=== PATIENT | male | born 1955 | race Caucasian/White ===

== ENCOUNTER 2018-08-05 08:53 | Emergency (ER) | payer MEDICARE, OTHER ==
[2018-08-05 08:58] VITALS: BP 192/98
--- NOTE | 2018-08-05 09:16 | EDM.PDOC ---
ED HPI GENERAL MEDICAL PROBLEM - General Chief Complaint: Chest Pain Stated Complaint: CHEST PAIN Time Seen by Provider: 08/05/18 08:56 Source of Information: Reports: Family (), RN History Limitations: Reports: Physical Impairment (Dementia) - History of Present Illness INITIAL COMMENTS - FREE TEXT/NARRATIVE: The patient has dementia, and is unable to contribute much to his history. According to our medical records, the patient was seen in this ED for chest pain on both 07/26/2018 and 07/28/2018. On his 07/26/2018 visit, his ECG, obtained while he was having chest pain, showed no ischemic changes, so the etiology of his chest pain was unclear, however, on his 07/28/2018 visit, he was diagnosed with presumptive GERD, as he had chest pain that resolved following a GI cocktail. He was started on Nexium. A coronary angiogram was subsequently ordered per his PCP, Brittni Castillo. Per report from the nurse, the patient was undergoing a stress test at this facility this morning, when he developed chest pain. He was sent here for evaluation. Here in the ED, the patient does not recall that he was undergoing a stress test, and does not recall having chest pain earlier today, but his short-term memory is extremely limited. At present, he has no complaints whatsoever. He denies having chest pain or dyspnea. Our medical records indicate that the patient has a history of vasospastic angina, although, according to his medication list, he is not on a calcium channel blanca or long-acting nitrate, such as Imdur. His history indicates that he underwent a coronary angiogram, which is likely when the vasospastic angina was diagnosed. The patient's believes that that was in either October 2014 or 2014, likely at [facility]. She recalls that the coronary angiogram found mild coronary artery disease at that time. We will endeavor to locate those records. The patient also has a history of dyslipidemia, however, the patient's states that with the patient's dementia, they simply stopped giving him his dyslipidemic medication. His Investigator Internal Affairs is Dr. Mendez. Chest Pain Score (Numeric/FACES): 10 - Related Data Allergies Allergy/AdvReac Type Severity Reaction Status Date / Time No Known Allergies Allergy Verified 08/05/18 08:58 Home Meds: Home Meds Donepezil HCl [Donepezil HCl Odt] 10 mg PO DAILY 03/12/16 [History] Memantine [Namenda] 10 mg PO BID 03/12/16 [History] Esomeprazole [NexIUM] 40 mg PO DAILY #30 cap 07/28/18 [Rx] Aspirin 1 tab PO DAILY 08/05/18 [History] atorvaSTATin [Lipitor] 1 tab PO BEDTIME #30 tab 08/05/18 [Rx] Past Medical History Cardiovascular History: Reports: High Cholesterol (untreated), Other (See Below ) (Vasospastic angina, previously known as Prinzmetal or variant angina, seen on coronary angiogram 09/30/2015) Neurological History: Reports: Other (See Below) (Dementia) - Past Surgical History Cardiovascular Surgical History: Reports: Other (See Below) (Coronary angiogram 09/30/[address] [facility]) GI Surgical History: Reports: Colonoscopy Social & Family History - Family History Family Medical History: Noncontributory - Tobacco Use Smoking Status *Q: Former Smoker Years of Tobacco use: 32 Packs/Tins Daily: 1 Month/Year Tobacco Last Used: Quit 2005 Second Hand Smoke Exposure: No - Caffeine Use Caffeine Use: Reports: Soda - Alcohol Use Alcohol Use History: Yes Alcohol Use Frequency: Rarely - Recreational Drug Use Recreational Drug Use: No - Living Situation & Occupation Living situation: Reports: , with Spouse Occupation: Retired ED ROS GENERAL - Review of Systems Review Of Systems: ROS reveals no pertinent complaints other than HPI. ED EXAM, GENERAL - Physical Exam Exam: See Below Exam Limited By: No Limitations General Appearance: Alert, WD/WN, No Apparent Distress Eye Exam: Bilateral Eye: EOMI, Normal Inspection Ears: Normal External Exam, Hearing Grossly Normal Nose: Normal Inspection, No Blood Throat/Mouth: Normal Inspection, Normal Lips, Normal Voice, No Airway Compromise Head: Atraumatic, Normocephalic Neck: Normal Inspection, Full Range of Motion Respiratory/Chest: No Respiratory Distress, Lungs Clear, Normal Breath Sounds, No Accessory Muscle Use Cardiovascular: Normal Peripheral Pulses, Regular Rate, Rhythm, No Gallop, No JVD, No Murmur, No Rub Peripheral Pulses: 4+: Radial (L), Radial (R) GI/Abdominal: Normal Bowel Sounds, Soft, Non-Tender, No Organomegaly, No Distention, No Abnormal Bruit, No Mass (Male) Exam: Deferred Rectal (Males) Exam: Deferred Back Exam: Normal Inspection, Full Range of Motion, NT Extremities: Normal Inspection, Normal Range of Motion, No Pedal Edema, Normal Capillary Refill Neurological: Alert, No Motor/Sensory Deficits, Disoriented Psychiatric: Normal Affect Skin Exam: Warm, Dry, Intact, Normal Color, No Rash EKG INTERPRETATION EKG Date: 08/05/18 Time: 08:52 Rhythm: NSR Rate (Beats/Min): 77 [place]: RAD-Right [place] Deviation (likely due to LPFB) P-Wave: Present QRS: Normal ST-T: Normal QT: Prolonged (borderline prolonged at 471 ms) Comparison: No Change (07/28/2018) Course - Vital Signs Last Recorded V/S: Last Vital Signs Temp 36.5 C 08/05/18 08:54 Pulse 72 08/05/18 08:54 Resp 28 H 08/05/18 08:54 BP 192/98 H 08/05/18 08:54 Pulse Ox 100 08/05/18 08:54 - Orders/Labs/Meds Orders: Active Orders 24 hr Category Date Time Status EKG Documentation Completion [RC] STAT Care 08/05/18 09:24 Active - Re-Assessments/Exams Free Text/Narrative Re-Assessment/Exam: 08/05/18 11:24 A copy of the coronary angiogram report from [facility], dated 2014, found nonobstructive disease and coronary spasm. This includes a 40% focal lesion and a 50% focal lesion in the LCx, and a 30% mid vessel lesion and 30-40% distal vessel lesion in the RCA. Nonobstructive RCA spasm was noted. A copy of this report will be attached to the patient's chart. 08/05/18 11:42 The above was discussed with the patient's . It is unclear what the cause of the patient's pain was today - whether GERD or vasospastic angina - but because the patient has a history of vasospastic angina, stress tests are not good options for him, as a positive stress test cannot distinguish between significant coronary artery disease and coronary vasospasm. The patient's does not believe that the patient has ever been on a calcium channel blanca or long-acting nitrate, but she does not know why not. I'm recommending that the patient follow-up with his Investigator Internal Affairs, Dr. Mendez, as soon as possible to discuss that issue. The patient's states that the patient has been off Lipitor for 3 years, she believes. She states that his cholesterol numbers came down, therefore she did not think that he still needed it. I checked with the [facility], and they tell me that the patient's last prescription for Lipitor 40 mg daily was in June 2016. I explained to the patient's the need for the patient be on Lipitor, because without it, we would expect progression of his coronary artery disease. I will send a prescription for Lipitor 40 mg daily to the [facility]. The patient's also states that the patient is currently scheduled for an echocardiogram, also ordered by his PCP, Brittni Castillo. The patient's does not know why the echocardiogram was ordered, and I do not see an indication for it at this time, although Ms. Castillo may have some history that I do not have. Again, because I'm recommending that the patient follow-up with his Investigator Internal Affairs, that they discuss whether or not the patient would benefit from an echocardiogram. Departure - Departure Time of Disposition: 11:48 Disposition: Home, Self-Care 01 Condition: Good Clinical Impression: Exertional chest pain Referrals: Brittni Castillo PA-C [Physician Newspaper Columnist] - Chanel Mendez MD [Physician] - Forms: ED Department Discharge Additional Instructions: Mika was seen in the emergency room after developing chest pain during a stress test this morning. By the time that he was seen in the ER, he no longer had any chest pain, and an ECG was normal. A copy of the coronary angiogram report from [facility], dated 2014 was acquired, confirming that your has a history of vasospastic angina. It is unclear whether his chest pain was due to vasospastic angina or some other cause, such as acid reflux, however, because he has a history of vasospastic angina, stress tests are not of much use, because they cannot distinguish between significant coronary artery disease and coronary artery vasospastic. The coronary angiogram did find some coronary disease. Because of that, your should be on a cholesterol-lowering medicine, such as Lipitor ( atorvastatin). A prescription for atorvastatin has been sent to the [facility], located in the [employer] [facility]. He should take one tablet at bedtime, starting tonight, as prescribed. Most patients with vasospastic angina or treated with a calcium channel blanca or long-acting nitrate. We recommend that you follow-up with your Investigator Internal Affairs, Dr. Mendez, to discuss if your would benefit from such a medicine. Your is currently scheduled for an outpatient echocardiogram, ordered by your PCP, Brittni Castillo. The reason for this is unclear. We recommend that you discuss with Dr. Mendez whether or not your would benefit from such a test. If any other problems, please do not hesitate to return Mika to the ER. - My Orders Last 24 Hours: My Active Orders 08/05/18 09:24 EKG Documentation Completion [RC] STAT - Assessment/Plan Last 24 Hours: My Active Orders 08/05/18 09:24 EKG Documentation Completion [RC] STAT
== END 2018-08-05 12:20 | disposition home or self-care (01) ==
LOC: JD.ED 08:53
DX: R07.9 Chest pain, unspecified (principal); F03.90 Unspecified dementia, unspecified severity, without behavioral disturbance, psychotic disturbance, mood disturbance, and anxiety; Z79.82 Long term (current) use of aspirin; Z79.899 Other long term (current) drug therapy; Z87.891 Personal history of nicotine dependence
CPT/HCPCS: 93005; 93010; 99284-25; 99285-25

== ENCOUNTER 2019-07-27 14:40 | Emergency (ER) | payer MEDICARE, OTHER ==
[2019-07-27 14:49] VITALS: BP 146/93; PULSE 58
--- NOTE | 2019-07-27 14:56 | EDM.PDOC ---
ED HPI GENERAL MEDICAL PROBLEM - General Chief Complaint: Chest Pain Stated Complaint: [facility] Time Seen by Provider: 07/27/19 14:51 Source of Information: Reports: Patient History Limitations: Reports: No Limitations - History of Present Illness INITIAL COMMENTS - FREE TEXT/NARRATIVE: 63-year-old male presents to the ED with initial complaint of severe lower back pain. Patient's decided that he was having such significant discomfort that they would bring him to [place] for care. En route to [place] he started to experience heavy central chest pressure discomfort which rate up into the of his neck and down his left arm. He's had a previous microinfarction requiring one stent a year ago and remains on Plavix daily. 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 He is apparently on isosorbide mononitrate 30mg od in am for this. Dosages been the same for the last year. At the time he arrives in the ED his chest pressure discomfort is rated as a 2 out of 10. His back pain is gone. His symptoms are worrisome therefore possible aortic dissection although would be unusual for the pain to gotten markedly improved on its own volition as it should've gotten much worse on Plavix. I'm going to see what his chest x-ray looks like and make a decision about need for aortogram. Patient's did give him 2 Aleve tablets at about noon hour today. He currently has no back pain. The history is comp located as the patient has early Alzheimer's disease and looks to his to answer most of his questions. He did sleep in a normal bed last night not in an awkward position is the easy chair or sofa. Onset: Unknown/Unsure Onset Date: 07/27/19 Onset Time: 12:00 (Development of back pain. The development of the central chest pain was more like 1330 hrs.) Duration: Hour(s): Location: Reports: Chest (Diffuse central chest pain rating up into his neck and left arm.), Back (Complaining of diffuse low back pain initially at about noon today.) Quality: Reports: Ache, Pressure (Still has a central pressure in his chest) Severity: Mild (which he claims is 2 out of 10.) Improves with: Reports: None Worsens with: Reports: None Context: Denies: Activity, Exercise, Lifting, Sick Contact, Trauma, Other Associated Symptoms: Reports: Confusion, Chest Pain (Patient has some early Alzheimer's disease looks to his to answer a lot of his questions. Describes central chest pressure discomfort as a heaviness and pressure not sharp and stabbing" currently rates it is 2 out of 10. Fairly one was severe was 9 out of 10.), Malaise. Denies: cough w sputum, Diaphoresis, Fever/Chills, Headaches, Loss of Appetite, Nausea/Vomiting, Rash, Seizure, Shortness of Breath , Syncope, Weakness Treatments BARBER STYLIST: Reports: Other (see below) (Had 2 Aleve tablets about noon today.) - Related Data Allergies Allergy/AdvReac Type Severity Reaction Status Date / Time No Known Allergies Allergy Verified 08/05/18 08:58 Home Meds: Home Meds Donepezil HCl [Donepezil HCl Odt] 10 mg PO DAILY 03/12/16 [History] Memantine [Namenda] 10 mg PO BID 03/12/16 [History] Aspirin 1 tab PO DAILY 08/05/18 [History] atorvaSTATin [Lipitor] 1 tab PO BEDTIME #30 tab 08/05/18 [Rx] Clopidogrel [Plavix] 75 mg PO DAILY 07/27/19 [History] Isosorbide Mononitrate [Isosorbide Mononitrate ER] 30 mg PO QAM 07/27/19 [ History] amLODIPine [Norvasc] 2.5 mg PO QAM 07/27/19 [History] Past Medical History Cardiovascular History: Reports: High Cholesterol (untreated), Other (See Below ) (Vasospastic angina, 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 The patient's states his pain usually lasts for 5 minutes when he gets angina variant but today did not go away.) Other Cardiovascular History: heart muscle spasm Gastrointestinal History: Reports: None Neurological History: Reports: Other (See Below) (Dementia) Other Neuro History: Dementia Psychiatric History: Reports: Dementia - Past Surgical History Cardiovascular Surgical History: Reports: Other (See Below) (Coronary angiogram 09/30/[address] [facility]) GI Surgical History: Reports: Colonoscopy Social & Family History - Family History Family Medical History: Noncontributory - Caffeine Use Caffeine Use: Reports: Soda - Living Situation & Occupation Living situation: Reports: , with Spouse Occupation: Retired ED ROS GENERAL - Review of Systems Review Of Systems: See Below Constitutional: Denies: Fever, Chills, Malaise, Weakness, Fatigue, Decreased Appetite (8. Dinner.), Weight Loss HEENT: Reports: No Symptoms Respiratory: Denies: Shortness of Breath, Pleuritic Chest Pain, Cough, Sputum, Hemoptysis Cardiovascular: Reports: Chest Pain (Central chest heaviness), Blood Pressure Problem, Dyspnea on Exertion (Sometimes). Denies: Claudication (Mild hypertension), Lightheadedness, Orthopnea Endocrine: Reports: Fatigue GI/Abdominal: Denies: Abdominal Pain, Anorexia, Black Stool, Constipation, Diarrhea, Decreased Appetite, Difficulty Swallowing, Distension, Flatus, Hematochezia : Reports: Frequency, Other (Nocturia usually 2 or 3 times.) Musculoskeletal: Reports: Neck Pain (Left arm pain associated with central chest pain), Arm Pain, Back Pain (Low back pain which is been problematic off and on in the past.) Skin: Reports: No Symptoms ( referred up into his neck from his central chest according to the patient.) Neurological: Reports: Confusion (Patient has early Alzheimer's disease and has an impaired short-term memory.) Psychiatric: Reports: No Symptoms Hematologic/Lymphatic: Reports: No Symptoms Immunologic: Reports: No Symptoms ED EXAM, GENERAL - Physical Exam Exam: See Below Exam Limited By: Other (Ration and has early Alzheimer's disease.) General Appearance: Alert ( Some impaired short-term memory and looks to his to answer a lot of his questions.), WD/WN, No Apparent Distress, Other ( Vital signs are stable other than blood pressure being mildly elevated 146/93. O2 sats are 97% on room air his heart rate is 58 in sinus. Afebrile.) Eye Exam: Bilateral Eye: Normal Inspection Throat/Mouth: Normal Inspection, Normal Lips, Normal Teeth, Normal Oropharynx, Other (Tongue is slightly dry and coated) Head: Atraumatic, Normocephalic, Sinus Tenderness Neck: Normal Inspection, Supple, Non-Tender, Full Range of Motion. No: Carotid Bruit, Lymphadenopathy (L), Lymphadenopathy (R) Respiratory/Chest: No Respiratory Distress, Lungs Clear, Normal Breath Sounds, No Accessory Muscle Use, Chest Non-Tender Cardiovascular: Normal Peripheral Pulses, Regular Rate, Rhythm, No Edema, No Gallop, No Murmur, No Rub Peripheral Pulses: 2+: Carotid (L), Carotid (R), Femoral (L), Femoral (R), Posterior Tibial (L), Posterior Tibial (R), Dorsalis Pedis (L), Dorsalis Pedis ( R) GI/Abdominal: Normal Bowel Sounds, Soft, Non-Tender, No Organomegaly, No Distention, No Abnormal Bruit, No Mass, Pelvis Stable, Other. No: Guarding, Rigid, Rebound (No surgical scars), Tender Back Exam: Normal Inspection, Full Range of Motion, Other (He sits up easily on the gurney and from compression throughout his lumbar spine gave him no pain.) Extremities: Normal Inspection, Normal Range of Motion, Non-Tender, No Pedal Edema Neurological: Alert, CN II-XII Intact, Normal Cognition, Normal Gait, No Motor/ Sensory Deficits. No: Oriented (Oriented to time) Psychiatric: Flat Affect (Fairly flat affect.) Skin Exam: Warm, Dry, Intact, Normal Color, No Rash EKG INTERPRETATION EKG Date: 07/27/19 Time: 14:47 Rhythm: Other (Sinus bradycardia) Rate (Beats/Min): 59 [place]: RAD-Right [place] Deviation (108) P-Wave: Present QRS: Other (Left posterior fascicular block pattern decreased voltage precordial leads.) QT: Normal EKG Interpretation Comments: Abnormal ECG. No signs of ischemia Course - Vital Signs Last Recorded V/S: Last Vital Signs Temp 36.6 C 07/27/19 14:44 Pulse 58 L 07/27/19 14:44 Resp 18 07/27/19 14:44 BP 146/93 H 07/27/19 14:44 Pulse Ox 97 07/27/19 14:44 - Orders/Labs/Meds Orders: Active Orders 24 hr Category Date Time Status EKG Documentation Completion [RC] STAT Care 07/27/19 14:55 Active Chest 1V Frontal [CR] Stat Exams 07/27/19 14:55 Taken Lumbar Spine 2 or 3V [CR] Stat Exams 07/27/19 15:54 Taken Labs: Laboratory Tests 07/27/19 07/27/19 07/27/19 Range/Units 14:50 14:50 14:50 WBC 7.82 (4.23-9.07) K/mm3 RBC 4.95 (4.63-6.08) M/mm3 Hgb 15.7 (13.7-17.5) gm/L Hct 44.4 (40.1-51.0) % MCV 89.7 (79.0-92.2) fl MCH 31.7 (25.7-32.2) pg MCHC 35.4 (32.2-35.5) g/dl RDW Std Deviation 43.0 (35.1-43.9) fL Plt Count 228 (163-337) K/mm3 MPV 11.0 (9.4-12.3) fl Neut % (Auto) 65.5 (34.0-67.9) % Lymph % (Auto) 22.1 (21.8-53.1) % [place] % (Auto) 10.1 (5.3-12.2) % Eos % (Auto) 1.7 (0.8-7.0) Baso % (Auto) 0.3 (0.1-1.2) % Neut # (Auto) 5.13 (1.78-5.38) K/mm3 Lymph # (Auto) 1.73 (1.32-3.57) K/mm3 [place] # (Auto) 0.79 (0.30-0.82) K/mm3 Eos # (Auto) 0.13 (0.04-0.54) K/mm3 Baso # (Auto) 0.02 (0.01-0.08) K/mm3 PT 10.2 (9.7-12.0) SECONDS INR 0.93 D-Dimer, Quantitative 0.29 (0.19-0.50) mg/L Sodium 141 (136-145) mEq/L Potassium 3.4 L (3.5-5.1) mEq/L Chloride 108 H (98-107) mEq/L Carbon Dioxide 24 (21-32) mEq/L Anion Gap 12.4 (5-15) BUN 14 (7-18) mg/dL Creatinine 1.4 H (0.7-1.3) mg/dL Est Cr Clr Drug Dosing 57.74 mL/min Estimated GFR (MDRD) 51 (>60) mL/min BUN/Creatinine Ratio 10.0 L (14-18) Glucose 104 (80-115) mg/dL Calcium 9.0 (8.5-10.1) mg/dL Magnesium 2.3 (1.8-2.4) mg/dl Total Bilirubin 0.5 (0.2-1.0) mg/dL AST 15 (15-37) U/L ALT 35 (16-63) U/L Alkaline Phosphatase 125 H (46-116) U/L CK-MB (CK-2) 0.9 (0-3.6) ng/ml Troponin I < 0.017 (0.00-0.056) ng/mL C-Reactive Protein < 0.2 (<1.0) mg/dL NT-Pro-B Natriuret Pep (0-125) pg/mL Total Protein 6.9 (6.4-8.2) g/dl Albumin 3.9 (3.4-5.0) g/dl Globulin 3.0 gm/dL Albumin/Globulin Ratio 1.3 (1-2) 07/27/19 07/27/19 Range/Units 14:50 17:25 WBC (4.23-9.07) K/mm3 RBC (4.63-6.08) M/mm3 Hgb (13.7-17.5) gm/L Hct (40.1-51.0) % MCV (79.0-92.2) fl MCH (25.7-32.2) pg MCHC (32.2-35.5) g/dl RDW Std Deviation (35.1-43.9) fL Plt Count (163-337) K/mm3 MPV (9.4-12.3) fl Neut % (Auto) (34.0-67.9) % Lymph % (Auto) (21.8-53.1) % [place] % (Auto) (5.3-12.2) % Eos % (Auto) (0.8-7.0) Baso % (Auto) (0.1-1.2) % Neut # (Auto) (1.78-5.38) K/mm3 Lymph # (Auto) (1.32-3.57) K/mm3 [place] # (Auto) (0.30-0.82) K/mm3 Eos # (Auto) (0.04-0.54) K/mm3 Baso # (Auto) (0.01-0.08) K/mm3 PT (9.7-12.0) SECONDS INR D-Dimer, Quantitative (0.19-0.50) mg/L Sodium (136-145) mEq/L Potassium (3.5-5.1) mEq/L Chloride (98-107) mEq/L Carbon Dioxide (21-32) mEq/L Anion Gap (5-15) BUN (7-18) mg/dL Creatinine (0.7-1.3) mg/dL Est Cr Clr Drug Dosing mL/min Estimated GFR (MDRD) (>60) mL/min BUN/Creatinine Ratio (14-18) Glucose (80-115) mg/dL Calcium (8.5-10.1) mg/dL Magnesium (1.8-2.4) mg/dl Total Bilirubin (0.2-1.0) mg/dL AST (15-37) U/L ALT (16-63) U/L Alkaline Phosphatase (46-116) U/L CK-MB (CK-2) 1.0 (0-3.6) ng/ml Troponin I < 0.017 (0.00-0.056) ng/mL C-Reactive Protein (<1.0) mg/dL NT-Pro-B Natriuret Pep 141 H (0-125) pg/mL Total Protein (6.4-8.2) g/dl Albumin (3.4-5.0) g/dl Globulin gm/dL Albumin/Globulin Ratio (1-2) Meds: Medications Discontinued Medications Generic Name Dose Route Start Last Admin Trade Name Parthq PRN Reason Stop Dose Admin Hydromorphone HCl 0.5 mg 07/27/19 15:19 07/27/19 15:29 Dilaudid IVPUSH 07/27/19 15:20 Not Given ONETIME ONE Sodium Chloride 1,000 mls @ 125 mls/hr 07/27/19 15:00 07/27/19 15:00 Normal Saline IV 125 mls/hr ASDIRECTED THA Administration Ondansetron HCl 4 mg 07/27/19 15:20 07/27/19 15:29 Zofran IVPUSH 07/27/19 15:21 4 mg ONETIME ONE Administration - Radiology Interpretation Free Text/Narrative:: 63-year-old male with known coronary disease having had a OH year ago requiring one stent placement and is on Plavix presents to the ED with central chest pain rating up into his neck and down into his left arm. They left home and [place] about 12:30 today because of his complaints of severe low back pain. He had no known injuries and he slept in his own bed last night. Upon arrival in the ED has no further back pain. His gave him 2 L at home earlier about noon today. En route to [place] by private vehicle by [employer] he started to complain of severe retrosternal chest pressure discomfort and reports he looked rubi in color. She therefore summoned the [facility] or [facility] and was to bring him to the hospital. He had taken his baby aspirin this morning and they had given him 3 more aspirins en route to the hospital. Here he complains of pain in his central chest at 2 out of 10. Tach pain is completely gone. The history suggests she has Prinzmetal's angina or spastic angina for which she does take isosorbide mononitrate 30 mils grams once daily every morning. Been on this for the last year. Plan ECG does not show any ischemia at this time. One view chest x-ray routine labs to include cardiac markers. I will look at his chest x-ray and if that suggests any signs of aortic dilatation I will have CT of his aorta performed. The history is seems to be somewhat confounded by the patient's short-term memory impairment and perhaps cognitive dysfunction from our early Alzheimer's disease. - Re-Assessments/Exams Free Text/Narrative Re-Assessment/Exam: 07/27/19 15:55 chest x-ray done portably shows normal cardiac silhouette. Perhaps very minimal vascular congestion pattern possibly exacerbated by portable technique. Visualized lungs are clear. It doesn't look like there is any signs of aortic problems. I will have x-rays of his lumbar spine performed i.e. AP and lateral views. 07/27/19 16:44 Labs are back. White count is 7.82 with 65% neutrophils on the auto differential. Hemoglobin is 15.7 with hematocrit of 44.4. Platelet count 220,000. PT is 10.2 with an INR of 0.93. D-dimer is 0.29 normal. Sodium 141 with potassium slightly low at 3.4. Chloride 108 with a bicarbonate 24. Anion gap is 12.4 BUN is 14 with a creatinine of 1.4. EGFR is 51. Glucose is 104 the calcium of 9.0. Magnesium is 2.3. Bilirubin is 0.5 liver function is otherwise normal. CK-MB fraction is 0.9 with troponin I of less than 0.017. C-reactive protein is less than 0.2. BNP is 141 minimally elevated. Total protein is 6.9 with albumin fraction of 3.9. 07/27/19 16:46 x-rays of the lumbar spine reveals a mild compression fracture of the anterior superior surface of T12 vertebra which is old. There is some narrowing of the disc space at L5-S1 with some nerve root entrapment of the L5 nerve root. He is up walking however without any pain in his back at this time. She'll cardiac markers are normal I will have the repeated a quarter after 5 to ensure that we did not miss anything. He doesn't seem to be in any distress and has no chest pressure discomfort at this time. Free Text/Narrative Re-Assessment/Exam: 07/27/19 18:17 Repeat cardiac markers reveal a CK-MB fraction of 1.0 and a troponin I of less than 0.017. Unchanged from the initial values. Departure - Departure Time of Disposition: 18:17 Disposition: Home, Self-Care 01 Condition: Fair Clinical Impression: Prinzmetal variant angina Lumbago without sciatica Qualifiers: Chronicity: acute Back pain laterality: unspecified Qualified Code(s): M54.5 - Low back pain Instructions: Acute Back Pain, Adult, Angina Pectoris, [id number] Referrals: Davis Kowalski MD [Primary Care Provider] - Forms: ED Department Discharge Additional Instructions: Evaluation the emergent today in regards to 2 problems. Initially started having diffuse low back pain with no radiation down the extremity. Appears due to be due to degenerative arthritis at the L5-S1 facet on x-ray. Narrowing of the disc space at this level and I suspect the fifth nerve gets pinched intermittently Aleve 2 tablets every 8 hours as needed for pain relief. On the way to [place] you develop significant retrosternal chest pain. Possibly aggravated by anxiety disorder. History of Prinzmetal's angina. ECG did not show any signs of heart ischemia. Chest x-ray was within normal limits. There is no sign of heart failure no sign of blood clot in the lung. Repeat cardiac markers 3 hours later reveal them to be unchanged and normal. Therefore no heart attack has occurred. It is my suggestion that if this type of pain comes on again then you are to take an extra dose of your isosorbide mononitrate tablet softened will work within 5-10 minutes to take away spastic type pain of the coronary arteries. - My Orders Last 24 Hours: My Active Orders 07/27/19 14:55 EKG Documentation Completion [RC] STAT Chest 1V Frontal [CR] Stat 07/27/19 15:54 Lumbar Spine 2 or 3V [CR] Stat - Assessment/Plan Last 24 Hours: My Active Orders 07/27/19 14:55 EKG Documentation Completion [RC] STAT Chest 1V Frontal [CR] Stat 07/27/19 15:54 Lumbar Spine 2 or 3V [CR] Stat
[2019-07-27] MEDS ORDERED: Sodium Chloride 0.9% 1,000 ML IV SCH (15:00)
[2019-07-27] MEDS ORDERED: HYDROmorphone 0.5 MG/0.5 ML Syringe IVPUSH ONE (15:19)
[2019-07-27] MEDS ORDERED: Ondansetron 4 MG/2 ML SDV IVPUSH ONE (15:20)
--- NOTE | 2019-07-28 09:22 | CR ---
Lumbar spine: AP, lateral and cone-down lateral views centered to the lumbosacral junction were obtained. Comparison: No previous study. Severe joint space narrowing is noted at L5-S1. Mild posterior disc space narrowing is noted at L1-L2, L2-L3 and L4-L5. Mild diffuse disc space narrowing is seen at T10-T11 and T11-T12. Scattered anterior endplate osteophytes are seen. Slight posterior osteophytes are noted at L5-S1. Sacroiliac joints are normal. Slight compression deformity is seen of T12 which is felt to be old. Pedicles as well as transverse and spinous processes are intact. Vascular calcification is noted within the abdominal aorta. Pressure: 1. Degenerative change as noted above. 2. Slight compression deformity of T12 which is felt to be old. 3. Nothing acute is seen. Diagnostic code #2
--- NOTE | 2019-07-28 09:22 | CR ---
Chest: Portable view of the chest was obtained. Comparison: Prior chest x-ray of 07/28/18. Heart size and mediastinum are within normal limits for portable technique. Lungs are clear with no acute parenchymal change. Bony structures are grossly intact. Impression: 1. Nothing acute is appreciated on portable chest x-ray. Diagnostic code #1
== END 2019-07-27 18:26 | disposition home or self-care (01) ==
LOC: JD.ED 14:40
DX: M54.5 Low back pain (principal); I20.1 Angina pectoris with documented spasm; E78.00 Pure hypercholesterolemia, unspecified; F03.90 Unspecified dementia, unspecified severity, without behavioral disturbance, psychotic disturbance, mood disturbance, and anxiety; Z79.82 Long term (current) use of aspirin; Z79.899 Other long term (current) drug therapy
CPT/HCPCS: 36415; 71045; 72100; 80053; 82553; 83735; 83880; 84484; 85025; 85379; 85610; 86140; 93005; 96361; 96374; 99285; J2405; J7040; 93010

== ENCOUNTER 2019-10-12 21:44 | Emergency (ER) | payer MEDICARE, OTHER ==
[2019-10-12 21:50] VITALS: BP 148/80; PULSE 82
--- NOTE | 2019-10-12 22:25 | EDM.PDOC ---
ED HPI GENERAL MEDICAL PROBLEM - General Chief Complaint: Cardiovascular Problem Stated Complaint: [facility] Time Seen by Provider: 10/12/19 21:54 Source of Information: Reports: Patient, Family (, 2 adult kids) History Limitations: Reports: Altered Mental Status (Dementia) - History of Present Illness INITIAL COMMENTS - FREE TEXT/NARRATIVE: Mr. Gibson is a pleasant 64-year-old man with a past medical history significant for dementia, wherefore he is unable to contribute to his history. His and 2 kids provided his entire history, along with a report from EMS. The patient also has a history of vasospastic angina and coronary artery disease , status post a single coronary stent on 10/02/2018. [place] to the patient's , the patient often feels cold, and is shaking his fist yesterday morning. Today, the patient was more sleepy than usual, and he swore today, which is new for him. His called EMS after he told her that he felt like he was having a heart attack, around 19:50. No recent fever, cough , complaint of dyspnea, nausea, vomiting, constipation, diarrhea, or complaint of urinary symptoms. EMS reported that they found the patient to be in atrial fibrillation, but that he converted to a normal sinus rhythm by the time they got him into the ambulance. A rhythm strip appears to indicate sinus bradycardia. Here in the ED, the patient is found to be afebrile, saturating 94% on room air. He is alert and appears to be comfortable. He denies having any pain, anywhere. The patient's PCP is SYLWIA Mccann, although he has also seen Dr. Davis Kowalski. His Wine Pasteurizer is Dr. Santino Lozano. His Neurologist is Dr. Adan Avila. The patient has not received an influenza vaccine this season, but the patient' s agreed for him to receive one here. - Related Data Allergies Allergy/AdvReac Type Severity Reaction Status Date / Time No Known Allergies Allergy Verified 10/12/19 21:57 Home Meds: Home Meds Donepezil HCl [Donepezil HCl Odt] 10 mg PO DAILY 03/12/16 [History] Memantine [Namenda] 10 mg PO BID 03/12/16 [History] Aspirin 1 tab PO DAILY 08/05/18 [History] atorvaSTATin [Lipitor] 1 tab PO BEDTIME #30 tab 08/05/18 [Rx] Isosorbide Mononitrate [Isosorbide Mononitrate ER] 30 mg PO QAM 07/27/19 [ History] LORazepam [Ativan] 0.5 mg PO TID PRN 10/12/19 [History] Past Medical History Cardiovascular History: Reports: CAD, High Cholesterol, Other (See Below) ( Vasospastic angina, 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, seen on coronary angiogram 09/30/2015) Musculoskeletal History: Reports: Fracture (t12 compression) Neurological History: Reports: Other (See Below) (Dementia) - Past Surgical History Cardiovascular Surgical History: Reports: Coronary Artery Stent (x 1, 2017 @ [facility]), Other (See Below) (Coronary angiogram x 2 @ [facility]) GI Surgical History: Reports: Colonoscopy Social & Family History - Family History Family Medical History: Noncontributory - Tobacco Use Smoking Status *Q: Former Smoker Years of Tobacco use: 32 Packs/Tins Daily: 1 Month/Year Tobacco Last Used: Quit 2005 Tobacco Use Comment: Pt unable to provide answer for RN due to demetia. - Caffeine Use Caffeine Use: Reports: Soda Caffeine Use Comment: Pt unable to provide answer for RN due to demetia. - Alcohol Use Alcohol Use History: Yes Alcohol Use Frequency: Rarely - Recreational Drug Use Recreational Drug Use: No - Living Situation & Occupation Living situation: Reports: , with Spouse Occupation: Retired ED ROS GENERAL - Review of Systems Review Of Systems: Comprehensive ROS is negative, except as noted in HPI. ED EXAM, GENERAL - Physical Exam Exam: See Below Exam Limited By: No Limitations General Appearance: Alert, WD/WN, No Apparent Distress Eye Exam: Bilateral Eye: EOMI, Normal Inspection Ears: Normal External Exam, Hearing Grossly Normal Nose: Normal Inspection Throat/Mouth: Normal Inspection, Normal Lips, Normal Voice, No Airway Compromise Head: Atraumatic, Normocephalic Neck: Normal Inspection, Full Range of Motion Respiratory/Chest: No Respiratory Distress, Lungs Clear, Normal Breath Sounds, No Accessory Muscle Use Cardiovascular: Normal Peripheral Pulses, Regular Rate, Rhythm, No Gallop, No JVD, No Murmur, No Rub Peripheral Pulses: 4+: Radial (L), Radial (R) GI/Abdominal: Normal Bowel Sounds, Soft, Non-Tender, No Organomegaly, No Distention, No Abnormal Bruit, No Mass (Male) Exam: Deferred Rectal (Males) Exam: Deferred Back Exam: Normal Inspection, Full Range of Motion, NT Extremities: Normal Inspection, Normal Range of Motion, No Pedal Edema, Normal Capillary Refill Neurological: Alert, No Motor/Sensory Deficits Psychiatric: Normal Affect Skin Exam: Warm, Dry, Intact, Normal Color, No Rash EKG INTERPRETATION EKG Date: 10/12/19 Time: 21:46 Rhythm: NSR Rate (Beats/Min): 63 [place]: RAD-Right Eng[place]hard Deviation (2 LPFB) P-Wave: Present (1 AVB) QRS: Normal (Late transition) ST-T: Normal QT: Normal Comparison: No Change (07/27/2019) Course - Vital Signs Last Recorded V/S: Last Vital Signs Temp 36.9 C 10/12/19 21:46 Pulse 82 10/12/19 21:46 Resp 14 10/12/19 21:46 BP 148/80 H 10/12/19 21:46 Pulse Ox 94 L 10/12/19 21:46 - Orders/Labs/Meds Orders: Active Orders 24 hr Category Date Time Status EKG Documentation Completion [RC] STAT Care 10/12/19 22:17 Active Chest 2V [CR] Stat Exams 10/12/19 22:25 Taken CULTURE BLOOD [BC] Stat Lab 10/12/19 22:33 Received CULTURE BLOOD [BC] Stat Lab 10/12/19 22:43 Received Blood Culture x2 Reflex Set [OM.PC] Stat Oth 10/12/19 22:17 Ordered Labs: Laboratory Tests 10/12/19 10/12/19 10/12/19 Range/Units 22:43 22:43 22:43 WBC 8.05 (4.23-9.07) K/mm3 RBC 4.59 L (4.63-6.08) M/mm3 Hgb 14.6 (13.7-17.5) gm/dl Hct 41.7 (40.1-51.0) % MCV 90.8 (79.0-92.2) fl MCH 31.8 (25.7-32.2) pg MCHC 35.0 (32.2-35.5) g/dl RDW Std Deviation 44.1 H (35.1-43.9) fL Plt Count 203 (163-337) K/mm3 MPV 11.0 (9.4-12.3) fl Neutrophils % (Manual) 60 (40-60) % Band Neutrophils % 1 (0-10) % Lymphocytes % (Manual) 29 (20-40) % Atypical Lymphs % 0 % Monocytes % (Manual) 8 (2-10) % Eosinophils % (Manual) 2 (0.8-7.0) % Basophils % (Manual) 0 L (0.2-1.2) Platelet Estimate Adequate Plt Morphology Comment See note RBC Morph Comment Normal Sodium 143 (136-145) mEq/L Potassium 3.5 (3.5-5.1) mEq/L Chloride 109 H (98-107) mEq/L Carbon Dioxide 24 (21-32) mEq/L Anion Gap 13.5 (5-15) BUN 10 (7-18) mg/dL Creatinine 1.2 (0.7-1.3) mg/dL Est Cr Clr Drug Dosing 60.55 mL/min Estimated GFR (MDRD) > 60 (>60) mL/min BUN/Creatinine Ratio 8.3 L (14-18) Glucose 107 (80-115) mg/dL Lactic Acid 0.7 (0.4-2.0) mmol/L Calcium 8.5 (8.5-10.1) mg/dL Magnesium 2.2 (1.8-2.4) mg/dl Total Bilirubin 0.6 (0.2-1.0) mg/dL AST 19 (15-37) U/L ALT 38 (16-63) U/L Alkaline Phosphatase 108 (46-116) U/L Troponin I < 0.017 (0.00-0.056) ng/mL Total Protein 6.6 (6.4-8.2) g/dl Albumin 3.7 (3.4-5.0) g/dl Globulin 2.9 gm/dL Albumin/Globulin Ratio 1.3 (1-2) Urine Color (Yellow) Urine Appearance (Clear) Urine pH (5.0-8.0) Ur Specific [place] (1.005-1.030) Urine Protein (Negative) Urine Glucose (UA) (Negative) Urine Ketones (Negative) Urine Occult Blood (Negative) Urine Nitrite (Negative) Urine Bilirubin (Negative) Urine Urobilinogen (0.2-1.0) Ur Leukocyte Esterase (Negative) Urine RBC (0-5) /hpf Urine WBC (0-5) /hpf Ur Epithelial Cells (0-5) /hpf Amorphous Sediment (NOT SEEN) /hpf Urine Bacteria (FEW) /hpf Urine Mucus (FEW) /hpf 10/12/19 Range/Units 23:00 WBC (4.23-9.07) K/mm3 RBC (4.63-6.08) M/mm3 Hgb (13.7-17.5) gm/dl Hct (40.1-51.0) % MCV (79.0-92.2) fl MCH (25.7-32.2) pg MCHC (32.2-35.5) g/dl RDW Std Deviation (35.1-43.9) fL Plt Count (163-337) K/mm3 MPV (9.4-12.3) fl Neutrophils % (Manual) (40-60) % Band Neutrophils % (0-10) % Lymphocytes % (Manual) (20-40) % Atypical Lymphs % % Monocytes % (Manual) (2-10) % Eosinophils % (Manual) (0.8-7.0) % Basophils % (Manual) (0.2-1.2) Platelet Estimate Plt Morphology Comment RBC Morph Comment Sodium (136-145) mEq/L Potassium (3.5-5.1) mEq/L Chloride (98-107) mEq/L Carbon Dioxide (21-32) mEq/L Anion Gap (5-15) BUN (7-18) mg/dL Creatinine (0.7-1.3) mg/dL Est Cr Clr Drug Dosing mL/min Estimated GFR (MDRD) (>60) mL/min BUN/Creatinine Ratio (14-18) Glucose (80-115) mg/dL Lactic Acid (0.4-2.0) mmol/L Calcium (8.5-10.1) mg/dL Magnesium (1.8-2.4) mg/dl Total Bilirubin (0.2-1.0) mg/dL AST (15-37) U/L ALT (16-63) U/L Alkaline Phosphatase (46-116) U/L Troponin I (0.00-0.056) ng/mL Total Protein (6.4-8.2) g/dl Albumin (3.4-5.0) g/dl Globulin gm/dL Albumin/Globulin Ratio (1-2) Urine Color Yellow (Yellow) Urine Appearance Clear (Clear) Urine pH 6.0 (5.0-8.0) Ur Specific [place] 1.010 (1.005-1.030) Urine Protein Negative (Negative) Urine Glucose (UA) Negative (Negative) Urine Ketones Negative (Negative) Urine Occult Blood Negative (Negative) Urine Nitrite Negative (Negative) Urine Bilirubin Negative (Negative) Urine Urobilinogen 1.0 (0.2-1.0) Ur Leukocyte Esterase Negative (Negative) Urine RBC 0-5 (0-5) /hpf Urine WBC Not seen (0-5) /hpf Ur Epithelial Cells Not seen (0-5) /hpf Amorphous Sediment Few H (NOT SEEN) /hpf Urine Bacteria Few (FEW) /hpf Urine Mucus Rare (FEW) /hpf - Re-Assessments/Exams Free Text/Narrative Re-Assessment/Exam: 10/12/19 22:19 As per the HPI, the patient's states that the patient often feels cold, and may have had some shivers yesterday morning. He had increased sleepiness today, and swore, which is new, otherwise, there were no significant symptoms. According to the triage note, EMS found the patient to be in atrial fibrillation , however, by the time they got him in the ambulance, he was in a normal sinus rhythm. The rhythm strip collected by EMS appears to demonstrate a sinus bradycardia. Here in the ED, the patient is in a normal sinus rhythm. There are no ischemic changes on his ECG, and he ate that he has no pain, whatsoever, anywhere. I have ordered a workup that includes blood work, a chest x-ray, a urinalysis, and an influenza swab. 10/13/19 00:19 2-view chest radiograph appears to be grossly normal. The cardiac silhouette is within normal limits. No pulmonary vascular congestion. No pleural effusions. No focal infiltrate. No pneumothorax. Formal read per the Radiologist pending. The patient's CBC is unremarkable. His CMP is remarkable only for a chloride slightly elevated at 109, and is otherwise unremarkable. His magnesium is within normal limits at 2.2. His troponin is undetectably low. His lactic acid level is within normal limits at 0.7. His urinalysis is unremarkable. His influenza swab is negative. 10/13/19 00:24 Test results discussed with the patient and his son. As above, today's workup is entirely unremarkable. There is no suggestion of an infection or recent cardiac event. I offered to place the patient into observation overnight, but the patient's would prefer to take him home. The patient will receive an influenza vaccine prior to discharge. Departure - Departure Time of Disposition: 00:25 Disposition: Home, Self-Care 01 Condition: Good Clinical Impression: Sleepiness Chest pain Qualifiers: Chest pain type: chest pain due to myocardial ischemia Qualified Code(s): I20.9 - Angina pectoris, unspecified Referrals: Brittni Castillo PA-Don [Physician Service Team Leader] - Santino Lozano MD [Ordering Only Provider] - Adan Avila MD [Ordering Only Provider] - Forms: ED Department Discharge Additional Instructions: Mr. Gibson was seen in the ER after being more sleepy than usual during the day , feeling cold, and complaining of chest pain. Workup in the ER included blood work, 2 sets of blood cultures, a urinalysis, an influenza swab, a chest x-ray, and an ECG. His entire workup was unremarkable. There is no suggestion of an infection. He does not have pneumonia. He does not have influenza. He does not have a urinary tract infection. He has not suffered a heart attack. The cause of his symptoms is unclear. Placement into observation overnight was offered, but declined. He may resume his usual medications, as prescribed. He should follow-up with his PCP, SYLWIA Abernathy, as needed. If any other problems, please do not hesitate to return Mr. Gibson to the ER. *He received an influenza vaccine during his ER visit.* - My Orders Last 24 Hours: My Active Orders 10/12/19 22:17 EKG Documentation Completion [RC] STAT Blood Culture x2 Reflex Set [OM.PC] Stat 10/12/19 22:25 Chest 2V [CR] Stat 10/12/19 22:33 CULTURE BLOOD [BC] Stat 10/12/19 22:43 CULTURE BLOOD [BC] Stat - Assessment/Plan Last 24 Hours: My Active Orders 10/12/19 22:17 EKG Documentation Completion [RC] STAT Blood Culture x2 Reflex Set [OM.PC] Stat 10/12/19 22:25 Chest 2V [CR] Stat 10/12/19 22:33 CULTURE BLOOD [BC] Stat 10/12/19 22:43 CULTURE BLOOD [BC] Stat
--- NOTE | 2019-10-13 08:31 | CR ---
Chest: Two views of the chest were obtained. Comparison: Prior chest x-ray of 07/27/19. Heart size appears slightly prominent. Upper mediastinum is normal. Lungs are clear. Bony structures appear within normal limits for the patient's age. Impression: 1. Nothing acute is seen on two-view chest x-ray. Diagnostic code #2
== END 2019-10-13 00:55 | disposition home or self-care (01) ==
LOC: JD.ED 21:44
DX: I20.9 Angina pectoris, unspecified (principal); E78.00 Pure hypercholesterolemia, unspecified; Z79.82 Long term (current) use of aspirin; Z79.899 Other long term (current) drug therapy; Z87.891 Personal history of nicotine dependence
CPT/HCPCS: 36415; 71046; 80053; 81001; 83605; 83735; 84484; 85007; 85027; 87040; 87804; 90662; 93005; 99284; G0008; 93010; 99283

== ENCOUNTER 2019-11-15 19:38 | Emergency (ER) | payer MEDICARE, OTHER ==
[2019-11-15 20:02] VITALS: BP 140/82; PULSE 72
[2019-11-15] MEDS ORDERED: LORazepam 2 MG/ML SDV IM SCH (22:30)
--- NOTE | 2019-11-15 23:33 | EDM.PDOCBH ---
ED HPI GENERAL MEDICAL PROBLEM - General Chief Complaint: Behavioral/Psych Stated Complaint: HAVING HALLUCINATIONS/PARANOID Time Seen by Provider: 11/15/19 20:02 Source of Information: Reports: Family History Limitations: Reports: Other (Patient is demented) - History of Present Illness INITIAL COMMENTS - FREE TEXT/NARRATIVE: TRIAGE NOTE -- Pt's brings pt in from [facility] facility after increasingly aggressive behaviours and paranoia. Stats has been worsenening over the past week. Pt has been refusing to take medications. Pt has hx of dementia. [ End ] The patient was diagnosed with a dementing illness about 3 years ago. There is been increasing agitation and recently noted evidence of visual hallucinations. The patient became unmanageable at home and was accepted for admission to a long-term care facility in the local area. The patient was transferred there today. After a few hours the facility determined that they could not handle him , said he was a threat to other patients, and discharged him back to home. He was promptly brought to the emergency department for further evaluation and management. - Related Data Allergies Allergy/AdvReac Type Severity Reaction Status Date / Time No Known Allergies Allergy Verified 11/15/19 19:59 Home Meds: Home Meds Donepezil HCl [Donepezil HCl Odt] 10 mg PO DAILY 03/12/16 [History] Memantine [Namenda] 10 mg PO BID 03/12/16 [History] Aspirin 1 tab PO DAILY 08/05/18 [History] atorvaSTATin [Lipitor] 1 tab PO BEDTIME #30 tab 08/05/18 [Rx] Isosorbide Mononitrate [Isosorbide Mononitrate ER] 30 mg PO QAM 07/27/19 [ History] LORazepam [Ativan] 0.5 mg PO TID PRN 10/12/19 [History] Past Medical History Cardiovascular History: Reports: CAD, High Cholesterol Other Cardiovascular History: heart muscle spasm Gastrointestinal History: Reports: None Musculoskeletal History: Reports: Fracture Neurological History: Reports: Other (See Below) (Dementia) Other Neuro History: Dementia Psychiatric History: Reports: Dementia - Past Surgical History Cardiovascular Surgical History: Reports: Coronary Artery Stent GI Surgical History: Reports: Colonoscopy Social & Family History - Family History Family Medical History: Noncontributory - Tobacco Use Smoking Status *Q: Unknown Ever Smoked - Caffeine Use Caffeine Use: Reports: Soda Caffeine Use Comment: Pt unable to provide answer for RN due to demetia. - Living Situation & Occupation Living situation: Reports: , with Spouse Occupation: Retired ED ROS GENERAL - Review of Systems Review Of Systems: Unable To Obtain Reason Not Obtained: Patient is demented ED EXAM, BEHAVIORAL HEALTH - Physical Exam Exam: See Below Exam Limited By: No Limitations General Appearance: Alert, WD/WN, No Apparent Distress, Other (Confused erratic and poorly cooperative) Eye Exam: Bilateral Eye: EOMI Ears: Normal External Exam Nose: Normal Inspection Throat/Mouth: Normal Inspection Head: Atraumatic, Normocephalic Neck: Normal Inspection, Supple Respiratory/Chest: No Respiratory Distress, Lungs Clear, Normal Breath Sounds Cardiovascular: Regular Rate, Rhythm GI/Abdominal: Soft, Non-Tender Back Exam: Normal Inspection Extremities: Normal Inspection Neurological: Alert, Inattentive, Memory Loss Remote Events, Memory Loss Recent Events Psychiatric: Flat Affect, Incoherent, Restless, Inattentive, Non-Communicative, Poor Eye Contact, Uncooperative Skin Exam: Warm, Dry COURSE, BEHAVIORAL HEALTH COMP - Course Vital Signs: Last Vital Signs Temp 36.2 C 11/15/19 19:59 Pulse 72 11/15/19 19:59 Resp 18 11/15/19 19:59 BP 140/82 11/15/19 19:59 Pulse Ox 96 11/15/19 19:59 Orders, Labs, Meds: Active Orders 24 hr Category Date Time Status EKG Documentation Completion [RC] STAT Care 11/15/19 20:20 Active Chest 1V Frontal [CR] Stat Exams 11/15/19 20:20 Taken Head wo Cont [CT] Stat Exams 11/15/19 20:22 Taken KUB [Abdomen 1V Flat] [CR] Stat Exams 11/15/19 23:27 Ordered LORazepam [Ativan] Med 11/15/19 22:30 Active 2 mg IM ONETIME OLANZapine [ZyPREXA] 5 mg Med 11/15/19 23:45 Ordered Water For Injection, Sterile [Sterile Water for Injection] 2.1 ml IM ONETIME Medication Orders Olanzapine 5 mg/ Sterile Water 2.1 mls @ 999 mls/hr IM ONETIME THA Lorazepam (Ativan) 2 mg IM ONETIME THA Last Admin: 11/15/19 22:30 Dose: 2 mg Laboratory Tests 11/15/19 11/15/19 11/15/19 Range/Units 20:02 20:02 21:14 WBC (4.23-9.07) K/mm3 RBC (4.63-6.08) M/mm3 Hgb (13.7-17.5) gm/dl Hct (40.1-51.0) % MCV (79.0-92.2) fl MCH (25.7-32.2) pg MCHC (32.2-35.5) g/dl RDW Std Deviation (35.1-43.9) fL Plt Count (163-337) K/mm3 MPV (9.4-12.3) fl Neut % (Auto) (34.0-67.9) % Lymph % (Auto) (21.8-53.1) % [place] % (Auto) (5.3-12.2) % Eos % (Auto) (0.8-7.0) Baso % (Auto) (0.1-1.2) % Neut # (Auto) (1.78-5.38) K/mm3 Lymph # (Auto) (1.32-3.57) K/mm3 [place] # (Auto) (0.30-0.82) K/mm3 Eos # (Auto) (0.04-0.54) K/mm3 Baso # (Auto) (0.01-0.08) K/mm3 Sodium 141 (136-145) mEq/L Potassium 3.6 (3.5-5.1) mEq/L Chloride 106 (98-107) mEq/L Carbon Dioxide 23 (21-32) mEq/L Anion Gap 15.6 H (5-15) BUN 11 (7-18) mg/dL Creatinine 1.2 (0.7-1.3) mg/dL Est Cr Clr Drug Dosing TNP Estimated GFR (MDRD) > 60 (>60) mL/min BUN/Creatinine Ratio 9.2 L (14-18) Glucose 117 H (80-115) mg/dL Calcium 8.5 (8.5-10.1) mg/dL Magnesium 2.2 (1.8-2.4) mg/dl Total Bilirubin 0.5 (0.2-1.0) mg/dL AST 20 (15-37) U/L ALT 59 (16-63) U/L Alkaline Phosphatase 123 H (46-116) U/L Troponin I < 0.017 (0.00-0.056) ng/mL Total Protein 7.2 (6.4-8.2) g/dl Albumin 4.0 (3.4-5.0) g/dl Globulin 3.2 gm/dL Albumin/Globulin Ratio 1.3 (1-2) TSH 3rd Generation 0.783 (0.358-3.74) uIU/mL Urine Color Yellow (Yellow) Urine Appearance Clear (Clear) Urine pH 5.5 (5.0-8.0) Ur Specific [place] > or = 1.030 (1.005-1.030) Urine Protein Negative (Negative) Urine Glucose (UA) Negative (Negative) Urine Ketones Negative (Negative) Urine Occult Blood Negative (Negative) Urine Nitrite Negative (Negative) Urine Bilirubin Negative (Negative) Urine Urobilinogen 1.0 (0.2-1.0) Ur Leukocyte Esterase Negative (Negative) Urine Opiates Screen Negative (WPEUDJ=369) Ur Buprenorphine Scrn Negative (CUTOFF=10) Ur Oxycodone Screen Negative (JWV5TJ=095) Urine Methadone Screen Negative (VEQ2LA=481) Ur Propoxyphene Screen Negative (WQDLXS=953) Ur Barbiturates Screen Negative (OYKQZC=053) Ur Tricyclics Screen Negative (NIMJAO=086) Ur Phencyclidine Scrn Negative (CUTOFF=25) Ur Amphetamine Screen Negative (YIXDZJ=467) U Methamphetamines Scrn Negative (JKQIUI=821) U Benzodiazepines Scrn Presumptive positive H (UFWETG=548) U Cocaine Metab Screen Negative (UBXHVX=148) U Marijuana (THC) Screen Negative (CUTOFF=50) Ethyl Alcohol 0.00 (0.00) gm% 11/15/19 Range/Units 21:14 WBC 9.70 H (4.23-9.07) K/mm3 RBC 4.86 (4.63-6.08) M/mm3 Hgb 15.4 (13.7-17.5) gm/dl Hct 44.0 (40.1-51.0) % MCV 90.5 (79.0-92.2) fl MCH 31.7 (25.7-32.2) pg MCHC 35.0 (32.2-35.5) g/dl RDW Std Deviation 43.8 (35.1-43.9) fL Plt Count 184 (163-337) K/mm3 MPV 11.1 (9.4-12.3) fl Neut % (Auto) 77.2 H (34.0-67.9) % Lymph % (Auto) 13.0 L (21.8-53.1) % [place] % (Auto) 8.7 (5.3-12.2) % Eos % (Auto) 0.7 L (0.8-7.0) Baso % (Auto) 0.2 (0.1-1.2) % Neut # (Auto) 7.49 H (1.78-5.38) K/mm3 Lymph # (Auto) 1.26 L (1.32-3.57) K/mm3 [place] # (Auto) 0.84 H (0.30-0.82) K/mm3 Eos # (Auto) 0.07 (0.04-0.54) K/mm3 Baso # (Auto) 0.02 (0.01-0.08) K/mm3 Sodium (136-145) mEq/L Potassium (3.5-5.1) mEq/L Chloride (98-107) mEq/L Carbon Dioxide (21-32) mEq/L Anion Gap (5-15) BUN (7-18) mg/dL Creatinine (0.7-1.3) mg/dL Est Cr Clr Drug Dosing Estimated GFR (MDRD) (>60) mL/min BUN/Creatinine Ratio (14-18) Glucose (80-115) mg/dL Calcium (8.5-10.1) mg/dL Magnesium (1.8-2.4) mg/dl Total Bilirubin (0.2-1.0) mg/dL AST (15-37) U/L ALT (16-63) U/L Alkaline Phosphatase (46-116) U/L Troponin I (0.00-0.056) ng/mL Total Protein (6.4-8.2) g/dl Albumin (3.4-5.0) g/dl Globulin gm/dL Albumin/Globulin Ratio (1-2) TSH 3rd Generation (0.358-3.74) uIU/mL Urine Color (Yellow) Urine Appearance (Clear) Urine pH (5.0-8.0) Ur Specific [place] (1.005-1.030) Urine Protein (Negative) Urine Glucose (UA) (Negative) Urine Ketones (Negative) Urine Occult Blood (Negative) Urine Nitrite (Negative) Urine Bilirubin (Negative) Urine Urobilinogen (0.2-1.0) Ur Leukocyte Esterase (Negative) Urine Opiates Screen (BRLBCL=068) Ur Buprenorphine Scrn (CUTOFF=10) Ur Oxycodone Screen (NBK3ZB=863) Urine Methadone Screen (OIS8TN=476) Ur Propoxyphene Screen (ZCTKFA=143) Ur Barbiturates Screen (NKPVPL=543) Ur Tricyclics Screen (LTRXRO=126) Ur Phencyclidine Scrn (CUTOFF=25) Ur Amphetamine Screen (LZBNEQ=689) U Methamphetamines Scrn (BVNSFZ=246) U Benzodiazepines Scrn (IXHHTV=447) U Cocaine Metab Screen (GGQVDC=336) U Marijuana (THC) Screen (CUTOFF=50) Ethyl Alcohol (0.00) gm% Medications Generic Name Dose Route Start Last Admin Trade Name Freq PRN Reason Stop Dose Admin Olanzapine 5 mg/ Sterile Water 2.1 mls @ 999 mls/hr 11/15/19 23:45 IM ONETIME THA Lorazepam 2 mg 11/15/19 22:30 11/15/19 22:30 Ativan IM 2 mg ONETIME THA Administration Medical Clearance: 11/15/19 23:41 Patient was evaluated the view to transferring him to an appropriate facility. A full work-up was done without any significant abnormals being noted. CT scan of the head was done showing no acute intracranial abnormality the patient was cleared medically for transfer and was accepted at [facility] by attending psychiatrist Dr. Samson. Departure - Departure Time of Disposition: 23:43 Disposition: DC/Tfer to Acute Hospital 02 Condition: Fair Clinical Impression: Dementia with psychosis - Discharge Information Sepsis Event Note - Evaluation Sepsis Screening Result: No Definite Risk - Focused Exam Vital Signs: Vital Signs Temp Pulse Resp BP Pulse Ox 11/15/19 19:59 36.2 C 72 18 140/82 96 Date Exam was Performed: 11/15/19 Time Exam was Performed: 23:37 - My Orders Last 24 Hours: My Active Orders 11/15/19 20:20 EKG Documentation Completion [RC] STAT Chest 1V Frontal [CR] Stat 11/15/19 20:22 Head wo Cont [CT] Stat 11/15/19 22:30 LORazepam [Ativan] 2 mg IM ONETIME 11/15/19 23:27 KUB [Abdomen 1V Flat] [CR] Stat 11/15/19 23:45 OLANZapine [ZyPREXA] 5 mg Water For Injection, Sterile [Sterile Water for Injection] 2.1 ml IM ONETIME - Assessment/Plan Last 24 Hours: My Active Orders 11/15/19 20:20 EKG Documentation Completion [RC] STAT Chest 1V Frontal [CR] Stat 11/15/19 20:22 Head wo Cont [CT] Stat 11/15/19 22:30 LORazepam [Ativan] 2 mg IM ONETIME 11/15/19 23:27 KUB [Abdomen 1V Flat] [CR] Stat 11/15/19 23:45 OLANZapine [ZyPREXA] 5 mg Water For Injection, Sterile [Sterile Water for Injection] 2.1 ml IM ONETIME
[2019-11-15] MEDS ORDERED: OLANZapine 10 MG Vial ONE (23:37)
[2019-11-15] MEDS ORDERED: OLANZapine 10 MG Vial IM ONE (23:42)
[2019-11-15] MEDS ORDERED: OLANZapine 5 MG in Water For Injection, Sterile 2.1 ML IM SCH (23:45)
--- NOTE | 2019-11-17 07:12 | CR ---
Chest: Portable view of the chest is obtained. Comparison: Prior chest x-ray of 10/12/19. Heart size and mediastinum are normal. Slight parenchymal density within the lateral left costophrenic angle is seen most likely representing mild atelectasis. Lungs otherwise are clear. Bony structures appear grossly intact. Impression: 1. Probable atelectasis within the lateral left costophrenic angle. 2. Nothing acute is otherwise seen on portable chest x-ray. Diagnostic code #2 This report was dictated in [place] Standard Time
--- NOTE | 2019-11-17 07:42 | CT ---
Head CT Technique: Multiple axial sections through the brain were obtained. Intravenous contrast was not utilized. Comparison: Prior MRI brain of 06/08/14. Findings: Ventricles along with basal cisterns and sulci over the convexities are moderately prominent. Minimal areas of decreased density are noted within the periventricular white matter which is compatible with small vessel ischemic demyelination change. No other abnormal parenchymal densities are seen. No evidence of intracranial hemorrhage. No midline shift or mass effect is seen. Bone window settings were reviewed which show no acute calvarial abnormality. Visualized mastoid sinuses and paranasal sinuses showed nothing acute. Impression: 1. Senescent change as noted above. 2. Nothing acute is appreciated on noncontrast head CT exam. Diagnostic code #2 This report was dictated in [place] Standard Time I agree with preliminary report issued by [facility] ([facility] report finalized on 11/15/19, 10:49 PM Central Time)
== END 2019-11-16 00:26 ==
LOC: JD.ED 19:38
DX: F03.90 Unspecified dementia, unspecified severity, without behavioral disturbance, psychotic disturbance, mood disturbance, and anxiety (principal); F29 Unspecified psychosis not due to a substance or known physiological condition; I25.10 Atherosclerotic heart disease of native coronary artery without angina pectoris; E78.00 Pure hypercholesterolemia, unspecified; Z95.5 Presence of coronary angioplasty implant and graft; Z79.899 Other long term (current) drug therapy; Z79.82 Long term (current) use of aspirin
CPT/HCPCS: 36415; 70450; 71045; 80053; 80306; 81003; 83735; 84443; 84484; 85025; 93005; 96372; 99285; G0480; J2060; J3490; 99284